=== PATIENT | female | born 1930 | race African-American/Black ===

== ENCOUNTER 2017-06-12 09:37 | Inpatient (IN) | payer MEDICARE ==
[2017-06-12 10:58] LABS: INR 3.31 (0.77-1.02)
[2017-06-12 11:28] LABS: EGFR Non-African American 16.4 (>60)
--- NOTE | 2017-06-12 11:57 | RAD ---
INDICATION: Short of breath COMPARISON: January 05, 2016 TECHNIQUE: An AP portable view obtained at 1136 hours is submitted. FINDINGS: Bones/Soft Tissues: There are no acute bony findings. There is a left-sided cardiac pacemaker, unchanged Cardiomediastinal: The cardiomediastinal silhouette is mildly prominent but unchanged. Lungs: There is mild right basilar platelike atelectasis. The lungs are otherwise clear. Pleura: There are no pleural effusions. Other: None IMPRESSION: MILD RIGHT BASILAR ATELECTASIS. CARDIAC PACEMAKER.
[2017-06-12] MEDS ORDERED: Aspirin 81 mg CHEW TAB* 81 MG TAB.CHEW PO ONE (11:58)
[2017-06-12 12:42] LABS: ABS Basophils 0.1 10^3/ul (0-0.2); ABS Eosinophils 0 10^3/ul (0-0.6); ABS Lymphocytes 0.9 10^3/ul (1.0-4.8); ABS Monocytes 0.8 10^3/ul (0-0.8); ABS Neutrophils 5.4 10^3/ul (1.5-7.7); ABS Nucleated RBC 0 10^3/ul; Eosinophil % 0.2 % (0-6); Hematocrit 32 % (35-47); Hemoglobin 10.5 g/dl (12.0-16.0); Lymphocyte % 12.6 % (25-47); Mean Corpuscular HGB Conc 33 g/dl (31-36); Mean Corpuscular Hemoglobin 30 pg (27-31); Mean Corpuscular Volume 92 fL (80-97); Mean Platelet Volume 8.9 um3 (7.4-10.4); Nucleated Red Blood Cells % 0.1; Platelet Count 186 10^3/ul (150-450); Red Blood Count 3.51 10^6/ul (4.0-5.4); Red Cell Distribution Width 15 % (10.5-15); White Blood Count 7.2 10^3/ul (3.5-10.8)
[2017-06-12] MEDS ORDERED: Nitroglycerin TAB 0.4 MG* 0.4 MG TAB SL PRN (13:11)
[2017-06-12] MEDS ORDERED: Magnesium Hydroxide LIQ* 30 ML UDC PO PRN (13:11)
[2017-06-12] MEDS: Clindamycin CAP* 150 MG PO SCH ×2 (14:11→22:11)
--- NOTE | 2017-06-12 18:12 | HP ---
HISTORY AND PHYSICAL: DATE OF ADMISSION: 06/12/17 ADMITTING PROVIDER: Erik Esquivel MD PRIMARY CARE PROVIDER: Dr. Rhodes at [facility]. CHIEF COMPLAINT: Shortness of breath, dyspnea on exertion, lower extremity swelling with skin blistering on the right. HISTORY OF PRESENT ILLNESS: Mana Glez is an 86-year-old female with past medical history of hypertrophic cardiomyopathy; dementia; chronic atrial fibrillation, on Xarelto; hypertension; status post pacemaker; osteoarthritis, who has been feeling unwell over the last several days. Three days prior to admission, she was evaluated by nurses at [facility] for increased lower extremity swelling with some blistering of the right distal lower extremity. There was concern for cellulitis and CHF, so in addition to her already Lasix 40 mg daily , she was put back on spironolactone 25 mg and given double-strength Bactrim. This is in the setting of the week prior complaining to her friend and healthcare proxy, Malsavi Siddharth, who is also a physician, that she overall felt "tired," did not feel good. He had noticed that she had been more dyspneic on exertion over the last few weeks. She had increasing swelling in her legs. She also two days prior to admission, reportedly slipped out of her bed on to the ground. Day of admission, she was again seen by nursing at [facility]. The patient was seen to still have progressive shortness of breath and was referred to [facility] Emergency Room. Here, she was found to have acute kidney injury with creatinine up to 2.74 compared to 1.85, three days prior. Her troponin was elevated to 0.63. She does have a history of chronic troponin elevations in the 0.2 to 0.3 range during previous admissions for chest pain and had a normal cardiac catheterization in March 2013. She is also noted to have opening blister on her right lower extremity with some yellow purulent drainage superficially, although without any malodor. She had some mild basilar atelectasis on the right side on the chest x-ray. Her BNP was elevated to 619. She was referred to hospitalist service for admission for concern for elevated troponin, shortness of breath, CHF exacerbation, and acute kidney injury. The patient is notably a poor historian with severe short-term memory issues/dementia, but healthy proxy, Malsavi, is helpful given that he has visited her twice over the last several days. She has been attesting to feeling cold at night, although on her initial complaint was that she felt really "hot." She had been evaluated by Dr. Ferreira back in February 2017, which found on pacemaker interrogation that she had been in basically chronic atrial fibrillation. She was on spironolactone for 2 weeks at that time. 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 She is status post pacemaker. MEDICATIONS: Include: 1. Amlodipine 2.5 mg daily. 2. Bactrim 1 tab p.o. b.i.d., initiated 3 days ago. 3. Spironolactone 25 mg p.o. daily, initiated 3 days ago. 4. Xarelto 15 mg p.o. daily. 5. Nitroglycerin 0.4 mg sublingual q.5 minutes p.r.n. chest pain. 6. Milk of magnesia liquid 30 mL p.o. daily p.r.n. 7. Lasix 60 mg p.o. daily (actually had been on 40 up until day of admission). 8. Cholecalciferol 2000 units p.o. daily. 9. Atenolol 50 mg p.o. daily. 10. Tylenol 500 mg p.o. four times a day. ALLERGIES: CEFAZOLIN and PENICILLIN. The PENICILLIN causes facial swelling. FAMILY HISTORY: Both of her sisters have , one from lung cancer, the other from stroke. The patient attests that all of her daughters of lung cancer. She cannot relate mother or father's cause of other than "poor habits." SOCIAL HISTORY: The patient is a retired supervised worker, who helped to work with Issa Hein . She is not . She is accompanied by her healthcare proxy, Ana Messina, and second proxy is Fabienne Hunt. She desires to be a full code. She is a never smoker, former rare alcohol drinker. No drug use. REVIEW OF SYSTEMS: A complete 14-point review of systems limited due to the patient's dementia, but she does deny any chest pressure, abdominal pain, or pain in the legs. She is fixated on what her next meal will be. PHYSICAL EXAMINATION GENERAL APPEARANCE: No acute distress. Sitting in the hospital bed. VITAL SIGNS: Initially, temperature 98.7, pulse rate 78, respiratory rate 17, oxygen saturation 93% to 99%. She has been placed on 2 L nasal cannula. Blood pressure is between 104 to 112 systolically over 70s. HEENT: Normocephalic, atraumatic. Pupils are equal, round, and reactive to light. No scleral icterus. Moist mucous membranes. NECK: Supple. No cervical lymphadenopathy. PULMONARY: Slight rales at the right base. CARDIOVASCULAR: Regular rate and rhythm. No murmurs, rubs, or gallops. ABDOMEN: Soft, nontender, nondistended. No rebound or guarding. No Odonnell's sign. EXTREMITIES: Warm, well perfused. On the left lower extremity, there are two vertical scars and some mild medial erythema that has been marked and has receded somewhat from markings, nontender. There is 1+ pitting edema, and 1 to 2+ in the left ankle. On the right, there is approximately an inch long x 3 inch wide superficial skin breakdown with fluffing of skin with some yellow green pus-like exudate on the middle portions. Picture from two days ago showed a bullous blister on the lower half of this wound with the top half had been already sloughed off. NEURO: Supervisor [employer] strength 5/5. Cranial nerves II through XII intact. Hip flexion 5 /5 bilaterally. The patient has pain with flexion of the left ankle, but not to palpation. Dorsiflexion and plantar flexion are intact on the right side. DIAGNOSTIC STUDIES/LAB DATA: White count 7.2, hemoglobin 10.5, hematocrit 32, platelets 185. INR 3.31, D-dimer 295. Sodium 141, potassium 5.2, chloride 107 , carbon dioxide 25, BUN 54, creatinine 2.74, GFR 21, glucose 92, lactic acid 1.9, magnesium 2.6. Total bili 1.2, AST 32, ALT 16, alk phos 106. Troponin 0.63. CRP 22.4. BNP 676. Albumin 3.7, lipase 27. TSH 2.82. Imaging: Chest x-ray with mild right basilar atelectasis. EKG demonstrated right bundle branch block, V paced, some T-wave inversions in V2 through V6, no ST elevations or depressions. ASSESSMENT AND PLAN: Mana Glez is an 86-year-old female with past medical history of hypertrophic obstructive cardiomyopathy, dementia, chronic atrial fibrillation, chronic kidney disease, presenting with acute renal injury in the setting of new Bactrim and spironolactone that was recently initiated for what was suspected to be cellulitis and acute congestive heart failure exacerbation respectively. Her last echocardiogram was in October 2009 with preserved ejection fraction. She does reportedly have a congestive heart failure exacerbation in June of 2015 and she is on chronic diuretics with Lasix 40 mg daily. I am going to repeat a transthoracic echocardiogram. On her presentation, BNP is elevated at 619 highest that has been. Bactrim can certainly be contributing to her elevated creatinine and will be held. I am going to get a wound care consult for this right ulcerated lower extremity wound along with a culture. I am going to start her on clindamycin for now given her PCN allergy. She does not meet criteria for sepsis. I am going to hold the spironolactone and Lasix for now. I am going to get urine sodium and urine urea to calculate FEUrea. I suspect the patient is having acute kidney injury from the Bactrim (which can cause AIN) versus possibly acute tubular necrosis from infection versus prerenal with increased diuretics versus congestion 2/2 CHF. She seems volume overloaded on exam. She does not require emergent hemodialysis. Her potassium is slightly elevated at 5.2. Consideration for consulting Dr. More of Nephrology in the morning if the creatinine continues to worsen. Her GFR is 26. I am going to continue her Xarelto for now, but be careful that she is close to being below safe dosing and if her kidney function continues to decline, may be safer on warfarin. I will continue to trend troponins x4 hours until peak and put her on telemetry, inpatient status. I will add on some blood cultures. We will continue her bowel regimen and beta marsha, 50 mg atenolol daily. She is status post aspirin 324 mg in the emergency room. I am going to continue her on the Xarelto , but not the aspirin. Follow up what the echocardiogram shows to see if there are any regional wall motion abnormalities. The patient is potentially a candidate for a stress test in the morning. Troponin elevation is most likely congestive heart failure, demand ischemia, and acute kidney injury. She is a full code. Medical surrogates are Ana Messina and Fabienne Hunt. She can eat a heart-healthy diet. [id number]/[facility] #: [id number] SELENA
--- NOTE | 2017-06-12 18:19 | ED ---
Daly Chan Gabriel, scribed for Josue Loredo MD on 06/12/17 at 1022 . Shortness of Breath - HPI Summary HPI Summary: This patient is a 86 year old F BIBA to [facility] accompanied by her health care proxy with a chief complaint of SOB. The patient rates the pain 0/10 in severity. Symptoms aggravated by movement. Patient reports fatigue, cough, increased edema, and chest congestion. Patient denies fever, CP, and ABD pain. Patient was diagnosed with cellulitis 3 days ago on LE and is on Bactrim. Hx of CHF and is on blood thinners. - History of Current Complaint Chief Complaint: EDShortnessOfBreath Time Seen by Provider: 06/12/17 10:11 Hx Obtained From: Patient Onset/Duration: Still Present Timing: Constant Current Severity: Mild Dyspnea At: Rest Aggrevating Factors: Movement Associated Signs & Symptoms: Negative - fever, Cough (Nonproductive), Edema - Allergy/Home Medications Allergies/Adverse Reactions: Allergies Allergy/AdvReac Type Severity Reaction Status Date / Time cefazolin [From Ancef] Allergy Unknown Verified 06/12/17 09:49 Reaction Details Penicillins Allergy Unknown Verified 06/12/17 09:49 Reaction Details fusemex Allergy Unknown Uncoded 06/12/17 09:49 Reaction Details Home Medications: Home Medications Acetaminophen [Acetaminophen Extra Strength] 500 mg PO QID 06/12/17 [History Confirmed 06/12/17] Atenolol TAB* [Tenormin TAB* 50 MG] 50 mg PO DAILY 06/12/17 [History Confirmed 06/12/17] Cholecalciferol TAB* [Vitamin D TAB*] 2,000 units PO DAILY 06/12/17 [History Confirmed 06/12/17] Furosemide TAB* [Lasix TAB*] 60 mg PO DAILY 06/12/17 [History Confirmed 06/12/17 ] Magnesium Hydroxide LIQ* [Milk of Magnesia LIQ*] 30 ml PO DAILY PRN 06/12/17 [ History Confirmed 06/12/17] Nitroglycerin TAB 0.4 MG* 0.4 mg SL Q5M PRN 06/12/17 [History Confirmed 06/12/17 ] Senna/Docusate (NF) [Sennokot-S] 1 tab PO DAILY 06/12/17 [History Confirmed 04/27] Spironolactone TAB* [Aldactone TAB*] 25 mg PO DAILY 06/12/17 [History Confirmed 06/12/17] Sulfamethox/Trimethoprim DS* [Bactrim DS 800/160 TAB*] 1 tab PO BID 06/12/17 [ History Confirmed 06/12/17] amLODIPine TAB* [Norvasc 5 mg TAB*] 2.5 mg PO DAILY 06/12/17 [History Confirmed 06/12/17] PMH/Surg Hx/FS Hx/Imm Hx Endocrine/Hematology History: Reports: Other Endocrine/Hematological Disorders - Vitamin D Deficiency Cardiovascular History: Reports: Hx Congestive Heart Failure, Hx Deep Vein Thrombosis, Hx Hypertension, Hx Myocardial Infarction, Hx Pacemaker/ICD, Other Cardiovascular Problems/Disorders - Atrial Fib; Hypertrophic Obstructive Cardiomyopathy GI History: Reports: Hx Gastroesophageal Reflux Disease Musculoskeletal History: Reports: Hx Arthritis, Hx Back Problems, Hx Osteoporosis, Other Musculoskeletal History - Intervertebral Disc Displacement Cervical w/o Myelopathy; Neuralgia Neuriti Neurological History: Reports: Other Neuro Impairments/Disorders - Carpal Tunnel Syndrome; Memory Loss; Alzheimer's Disease Psychiatric History: Reports: Hx Depression - Cancer History Cancer Type, Location and Year: sinus mass per pt - Surgical History Surgery Procedure, Year, and Place: HYSTERECTOMY, TONSILECTOMY, LLE SURGERY FOR DVT, sinus malignancy Infectious Disease History: No Infectious Disease History: Denies: Traveled Outside the [place] in Last 30 Days - Family History Known Family History: Positive: Unknown - The patient is a poor historian and very hard of hearing - Social History Lives: At [facility] Alcohol Use: Rare Substance Use Type: Reports: None Smoking Status (MU): Former Smoker Type: Cigarettes Have You Smoked in the Last Year: No Review of Systems Positive: Fatigue. Negative: Fever Negative: Chest Pain Positive: Shortness Of Breath, Cough, Other - chest congestion Negative: Abdominal Pain Positive: Edema All Other Systems Reviewed And Are Negative: Yes Physical Exam - Summary Physical Exam Summary: General: well-appearing, no pain distress Skin: there is erythema on the medial aspect of the left calf Head: normal Eyes: EOMI, LENNOX ENT: normal Neck: supple, nontender Respiratory: bilateral wheeze Cardiovascular: RRR Abdomen: soft, nontender Bowel: present Musculoskeletal: strength/ROM intact, pedal edema Neurological: normal, sensory/motor intact, A&O x3 Psychological: affect/mood appropriate Triage Information Reviewed: Yes Vital Signs On Initial Exam: Initial Vitals Pulse Pulse Ox 66 97 06/12/17 09:43 06/12/17 09:43 Vital Signs Reviewed: Yes Diagnostics - Vital Signs Vital Signs Temp Pulse Resp BP Pulse Ox 06/12/17 10:00 92 16 88 06/12/17 09:45 98.7 F 76 20 112/71 98 06/12/17 09:44 77 112/71 98 06/12/17 09:43 66 97 - Laboratory Lab Results: Lab Results 06/12/17 06/12/17 06/12/17 Range/Units 10:44 10:44 12:15 WBC 7.2 (3.5-10.8) 10^3/ul RBC 3.51 L (4.0-5.4) 10^6/ul Hgb 10.5 L (12.0-16.0) g/dl Hct 32 L (35-47) % MCV 92 (80-97) fL MCH 30 (27-31) pg MCHC 33 (31-36) g/dl RDW 15 (10.5-15) % Plt Count 186 (150-450) 10^3/ul MPV 8.9 (7.4-10.4) um3 Neut % (Auto) 75.4 (38-83) % Lymph % (Auto) 12.6 L (25-47) % Wilson % (Auto) 10.8 H (0-7) % Eos % (Auto) 0.2 (0-6) % Baso % (Auto) 1.0 (0-2) % Absolute Neuts (auto) 5.4 (1.5-7.7) 10^3/ul Absolute Lymphs (auto) 0.9 L (1.0-4.8) 10^3/ul Absolute Monos (auto) 0.8 (0-0.8) 10^3/ul Absolute Eos (auto) 0 (0-0.6) 10^3/ul Absolute Basos (auto) 0.1 (0-0.2) 10^3/ul Absolute Nucleated RBC 0 10^3/ul Nucleated RBC % 0.1 INR (Anticoag Therapy) 3.31 H (0.77-1.02) APTT 40.0 H (26.0-36.3) seconds D-Dimer, Quantitative 295 H (Less Than 230) ng/mL Sodium 141 (139-145) mmol/L Potassium 5.2 H (3.5-5.0) mmol/L Chloride 107 (101-111) mmol/L Carbon Dioxide 25 (22-32) mmol/L Anion Gap 9 (2-11) mmol/L BUN 54 H (6-24) mg/dL Creatinine 2.74 H (0.51-0.95) mg/dL Est GFR ( Amer) 21.1 (>60) Est GFR (Non-Af Amer) 16.4 (>60) BUN/Creatinine Ratio 19.7 (8-20) Glucose 92 (70-100) mg/dL Lactic Acid (0.5-2.0) mmol/L Calcium 10.1 (8.6-10.3) mg/dL Magnesium 2.6 (1.9-2.7) mg/dL Total Bilirubin 1.20 H (0.2-1.0) mg/dL AST 32 (13-39) U/L ALT 16 (7-52) U/L Alkaline Phosphatase 106 H (34-104) U/L Total Creatine Kinase 155 (10-223) U/L CK-MB (CK-2) 8.1 H (0.6-6.3) ng/mL Troponin I 0.63 H* (<0.04) ng/mL C-Reactive Protein 22.41 H (< 5.00) mg/L B-Natriuretic Peptide ( - 100) pg/mL Total Protein 7.4 (6.4-8.9) g/dL Albumin 3.7 (3.2-5.2) g/dL Globulin 3.7 (2-4) g/dL Albumin/Globulin Ratio 1.0 (1-3) Lipase 27 (11.0-82.0) U/L TSH 2.82 (0.34-5.60) mcIU/mL 06/12/17 06/12/17 Range/Units 12:15 12:15 WBC (3.5-10.8) 10^3/ul RBC (4.0-5.4) 10^6/ul Hgb (12.0-16.0) g/dl Hct (35-47) % MCV (80-97) fL MCH (27-31) pg MCHC (31-36) g/dl RDW (10.5-15) % Plt Count (150-450) 10^3/ul MPV (7.4-10.4) um3 Neut % (Auto) (38-83) % Lymph % (Auto) (25-47) % Wilson % (Auto) (0-7) % Eos % (Auto) (0-6) % Baso % (Auto) (0-2) % Absolute Neuts (auto) (1.5-7.7) 10^3/ul Absolute Lymphs (auto) (1.0-4.8) 10^3/ul Absolute Monos (auto) (0-0.8) 10^3/ul Absolute Eos (auto) (0-0.6) 10^3/ul Absolute Basos (auto) (0-0.2) 10^3/ul Absolute Nucleated RBC 10^3/ul Nucleated RBC % INR (Anticoag Therapy) (0.77-1.02) APTT (26.0-36.3) seconds D-Dimer, Quantitative (Less Than 230) ng/mL Sodium (139-145) mmol/L Potassium (3.5-5.0) mmol/L Chloride (101-111) mmol/L Carbon Dioxide (22-32) mmol/L Anion Gap (2-11) mmol/L BUN (6-24) mg/dL Creatinine (0.51-0.95) mg/dL Est GFR ( Amer) (>60) Est GFR (Non-Af Amer) (>60) BUN/Creatinine Ratio (8-20) Glucose (70-100) mg/dL Lactic Acid 1.9 (0.5-2.0) mmol/L Calcium (8.6-10.3) mg/dL Magnesium (1.9-2.7) mg/dL Total Bilirubin (0.2-1.0) mg/dL AST (13-39) U/L ALT (7-52) U/L Alkaline Phosphatase (34-104) U/L Total Creatine Kinase (10-223) U/L CK-MB (CK-2) (0.6-6.3) ng/mL Troponin I (<0.04) ng/mL C-Reactive Protein (< 5.00) mg/L B-Natriuretic Peptide 676 H ( - 100) pg/mL Total Protein (6.4-8.9) g/dL Albumin (3.2-5.2) g/dL Globulin (2-4) g/dL Albumin/Globulin Ratio (1-3) Lipase (11.0-82.0) U/L TSH (0.34-5.60) mcIU/mL Result Diagrams: 06/12/17 12:15 06/12/17 10:44 Lab Statement: Any lab studies that have been ordered have been reviewed, and results considered in the medical decision making process. - Radiology CXR Radiology Interpretation Completed By: Radiologist - MILD RIGHT BASILAR ATELECTASIS. CARDIAC PACEMAKER. ED physician has reviewed this radiology report. - EKG 0955 Cardiac Rate: NL EKG Rhythm: Atrial Fibrillation - at 75 BPM EKG Interpretation: intermittent ventricular complexes, flipped T waves in the lateral leads Course/Dx - Course Course Of Treatment: ADMIT HOSPITALIST. CRITICAL CARE TIME LESS THAN 30 MINUTES. - Diagnoses Provider Diagnoses: Elevated troponin, Kidney insufficiency, CHF (congestive heart failure) - Physician Notifications Discussed Care of Patient With: Erik Esquivel Time Discussed With Above Provider: 12:11 Instructed by Provider To: Admit As Inpatient Discharge - Sign-Out/Discharge Documenting (check all that apply): Discharge/Admit/Transfer - admitted to Dr. Esquivel - Discharge Plan Condition: Stable Disposition: ADMITTED TO [facility] - Billing Disposition and Condition Condition: STABLE Disposition: [facility] The documentation as recorded by the Daly aguilar Gabriel accurately reflects the service I personally performed and the decisions made by , Josue Loredo MD.
--- NOTE | 2017-06-12 19:03 | ECHO ---
Patient: MICHAEL MANRIQUEZ [facility] Rec#: [id number] : 1930 Date: 06/12/2017 Age: 86y Height: 160.02 cm / 63.0 in Weight: 90.72 kg / 199.9 lbs Sex: F BSA: 1.93 Room#: [facility] Admit Date#: 06/12/2017 Type: Inpatient Referring: Erik Esquivel Reading: Rusty Salguero DO Thread Laster: Nasrin Barron RDCS CC: Baljeet Rhodes MD Transthoracic Echocardiogram Indication: CHF, shortness of breath BP: 104/78 HR: 65 Rhythm: Paced Findings History: Hypertrophic cardiomyopathy, a-fib, HTN, pacer, DVT. Technical Comments: The study quality is fair. Completed at 1630. Left Ventricle: The left ventricular chamber size is decreased. Moderate to severe concentric left ventricular hypertrophy is observed. There is normal left ventricular systolic function. The estimated ejection fraction is 55-60%. There is abnormal ventricular septal wall motion consistent with right ventricular pacemaker. The assessment of diastolic function is non-diagnostic. Left Atrium: The left atrium is severely dilated. Right Ventricle: The right ventricle is mildly dilated. The right ventricular global systolic function is mildly reduced. A pacemaker wire is visualized in the right ventricle. Right Atrium: The right atrium is not well visualized., it appears dilated. A pacemaker wire is visualized in the right atrium. Aortic Valve: The aortic valve is trileaflet. The aortic valve leaflets are mildly thickened. There is trace to mild aortic regurgitation. There is no evidence of aortic stenosis. Mitral Valve: There is mitral annular calcification. The mitral valve leaflets are mildly thickened. There is mild mitral regurgitation. There is no evidence of mitral stenosis. Tricuspid Valve: The tricuspid valve leaflets are normal. There is moderate tricuspid regurgitation. There is evidence of mild pulmonary hypertension. There is no tricuspid stenosis. Pulmonic Valve: The pulmonic valve appears normal. There is a trace pulmonic regurgitation. There is no pulmonic stenosis. Pericardium: There is no significant pericardial effusion. Aorta: There is no dilatation of the ascending aorta. The aortic arch is not well visualized. The aortic root is normal in size. Pulmonary Artery: The main pulmonary artery is not well visualized. Venous: The inferior vena cava is dilated. There is less than 50% respiratory change in the inferior vena cava dimension. Conclusions The left ventricular chamber size is decreased. Moderate to severe concentric left ventricular hypertrophy is observed. There is normal left ventricular systolic function. The estimated ejection fraction is 55-60%. The left atrium is severely dilated. The right ventricle is mildly dilated. The right ventricular global systolic function is mildly reduced. A pacemaker wire is visualized in the right ventricle. The right atrium is not well visualized., it appears dilated. There is moderate tricuspid regurgitation. There is evidence of mild pulmonary hypertension. Compared to echo from 10/2009, no clinically significant changes noted. Measurements Name Value Normal Range RVIDd (AP) 2D 2.9 cm (0.9 - 2.6) RVDdMajor (2D) 5 cm (2.2 - 4.4) RAd ISD 4CH 7.2 cm (3.4 - 4.9) RA (A4C)W 4.4 cm (2.9 - 4.6) IVSd (2D) 1.7 cm (0.6 - 1) LVPWd (2D) 1.5 cm (0.6 - 1) LVIDd (2D) 3.1 cm (3.6 - 5.4) LVIDs (2D) 2.1 cm - LV FS (2D) 32 % (25 - 45) Aortic Annulus 1.7 cm (1.4 - 2.6) Ao root diameter (2D) 2.6 cm (2.1 - 3.5) Ascending Ao 2.5 cm (2.1 - 3.4) LA dimension (AP) 2D 4.2 cm (2.3 - 3.8) LAd ISD 4CH 7.6 cm (2.9 - 5.3) LA ISD 4CH W 4.7 cm (2.5 - 4.5) Name Value Normal Range LA ESV SP 4CH (A/L) 105 ml - LA ESV SP 2CH (A/L) 70 ml - LA ESV BP (A/L) 100 ml - LA ESV BP (A/L) index 52 ml/m2 - LA ESV SP 4CH (MOD) 100 ml - LA ESV SP 2CH (MOD) 64 ml - Name Value Normal Range MV E-wave Vmax 0.63 m/sec - MV deceleration time 284.8 msec - MV A-wave Vmax 0.37 m/sec - MV E:A ratio 1.7 ratio - LV septal e' Vmax 0.03 m/sec - LV lateral e' Vmax 0.06 m/sec - LV E:e' septal ratio 21 ratio - LV E:e' lateral ratio 10.5 ratio - Name Value Normal Range AV Vmax 1.1 m/sec - AV VTI 22.53 cm - AV peak gradient 4.75 mmHg - AV mean gradient 2.15 mmHg - LVOT Vmax 0.78 m/sec - LVOT VTI 18.1 cm - LVOT peak gradient 2.49 mmHg - LVOT mean gradient 1.15 mmHg - Name Value Normal Range TR Vmax 2.6 m/sec - TR peak gradient 27 mmHg - RAP 15 mmHg - RVSP 42 mmHg - IVC diameter 2.7 cm - Name Value Normal Range PV Vmax 0.68 m/sec - PV peak gradient 1.88 mmHg -
[2017-06-13] MEDS: Clindamycin CAP* 150 MG PO SCH ×3 (05:18→22:34)
[2017-06-13 07:01] LABS: ABS Basophils 0.1 10^3/ul (0-0.2); ABS Eosinophils 0.1 10^3/ul (0-0.6); ABS Lymphocytes 1.1 10^3/ul (1.0-4.8); ABS Monocytes 0.9 10^3/ul (0-0.8); ABS Neutrophils 4.7 10^3/ul (1.5-7.7); ABS Nucleated RBC 0 10^3/ul; Eosinophil % 0.9 % (0-6); Hematocrit 32 % (35-47); Hemoglobin 10.6 g/dl (12.0-16.0); Lymphocyte % 16.4 % (25-47); Mean Corpuscular HGB Conc 33 g/dl (31-36); Mean Corpuscular Hemoglobin 30 pg (27-31); Mean Corpuscular Volume 92 fL (80-97); Mean Platelet Volume 8.7 um3 (7.4-10.4); Nucleated Red Blood Cells % 0.2; Platelet Count 177 10^3/ul (150-450); Red Blood Count 3.51 10^6/ul (4.0-5.4); Red Cell Distribution Width 15 % (10.5-15); White Blood Count 6.8 10^3/ul (3.5-10.8)
[2017-06-13 08:55] LABS: EGFR Non-African American 15.1 (>60)
[2017-06-13] MEDS ORDERED: Senna/Docusate (NF) TAB PO SCH (09:00)
[2017-06-13] MEDS: Atenolol TAB* 50 MG PO SCH (09:23)
[2017-06-13] MEDS: Cholecalciferol TAB* 1000 UNITS PO SCH (09:23)
[2017-06-13] MEDS: Collagenase 250 MG/GM OINT* 30 GM TOPICAL SCH (09:24)
[2017-06-13] MEDS: Senna TAB PO SCH (09:24)
[2017-06-13] MEDS: Docusate CAP* 100 MG PO SCH (09:24)
[2017-06-13] MEDS ORDERED: Sodium Polystyrene ORAL.SOL* 15 GM/60 ML BTL PO ONE (09:54)
[2017-06-13] MEDS ORDERED: Furosemide IV* 10 MG/ML VIAL (40 MG) IV ONE (10:36)
[2017-06-13] MEDS: Lactobacillus Acidophilus* 1 TAB PO SCH ×2 (12:19→22:34)
--- NOTE | 2017-06-13 13:33 | RAD ---
INDICATION: Leg wounds with nonpalpable pulses COMPARISON: CTA of the abdomen and pelvis dated April 29, 2013 that demonstrated adequate in-line flow from the aorta to the bilateral proximal superficial femoral arteries TECHNIQUE: Ankle-brachial indices and Doppler tracings were obtained of the lower extremities bilaterally. Volume pulse recordings were acquired at the bilateral ankles. REPORT: Ankle-brachial indices: Right: Value (SBP) Index Brachial: 120 Posterior tibialis: 138 1.15 Dorsalis pedis: 178 1.48 Digit: 55 0.46 Left: Value (SBP) Index Brachial: 109 Posterior tibialis: No flow identified Dorsalis pedis: Non-compressible Digit: 90 0.75 Doppler waveforms (acquired at rest): In the interrogated lower extremity arteries, Doppler waveforms are biphasic with reduced amplitudes measured at the right ankle, triphasic at the left dorsalis pedis artery and no flow is identified the left posterior tibial artery. Volume pulse recordings (acquired at rest): Volume pulse recordings, measured at the bilateral ankles, are symmetric. IMPRESSION: There is no flow identified in the posterior tibial artery and the left dorsalis pedis artery is noncompressible indicating advanced calcified atherosclerosis. Arterial waveforms are identified in the dorsalis pedis artery and a normal CANELO is recorded at the left digit. In the setting of critical limb ischemia recommend further characterization with arterial left lower extremity duplex sonography (please include the right common femoral artery for intervention planning) and/or catheter arteriography.
--- NOTE | 2017-06-13 15:09 | PN ---
Subjective Date of Service: 06/13/17 Interval History: Pt is pleasantly confused, unable to tell me how long she's had the ulcer on r leg. Has no complaints currently Objective Active Medications: Atenolol (Tenormin Tab*) 50 mg PO DAILY [facility] Last Admin: 06/13/17 09:23 Dose: 50 mg Cholecalciferol (Vitamin D Tab*) 2,000 units PO DAILY [facility] Last Admin: 06/13/17 09:23 Dose: 2,000 units Clindamycin HCl (Cleocin Cap*) 150 mg PO Q8HR [facility] Last Admin: 06/13/17 13:37 Dose: 150 mg Collagenase (Santyl 250 Mg/Gm Oint*) 1 applic TOPICAL DAILY [facility] Last Admin: 06/13/17 09:24 Dose: 1 applic Docusate Sodium (Colace Cap*) 100 mg PO DAILY [facility] Last Admin: 06/13/17 09:24 Dose: 100 mg Lactobacillus Rhamnosus (Lactobacillus Acidophilus*) 1 tab PO BID [facility] Last Admin: 06/13/17 12:19 Dose: 1 tab Magnesium Hydroxide (Milk Of Magnmateus Liq*) 30 ml PO DAILY PRN PRN Reason: CONSTIPATION Nitroglycerin (Nitroglycerin Tab 0.4 Mg*) 0.4 mg SL Q5M PRN PRN Reason: ANGINA Senna (Senokot Tab*) 1 tab PO DAILY [facility] Last Admin: 06/13/17 09:24 Dose: 1 tab Vital Signs - 8 hr 06/13/17 11:37 Temperature 98.0 F Pulse Rate 83 Respiratory 16 Rate Blood Pressure 100/56 (mmHg) O2 Sat by Pulse 100 Oximetry Oxygen Devices in Use Now: None Appearance: 86 yo f in nAD, oriented to self only Eyes: No Scleral Icterus, PERRLA Ears/Nose/Mouth/Throat: NL Teeth, Lips, Gums, Mucous Membranes Moist Neck: NL Appearance and Movements; NL JVP, Trachea Midline Respiratory: Symmetrical Chest Expansion and Respiratory Effort, - - crackles at b/l bases Cardiovascular: NL Sounds; No Murmurs; No JVD Abdominal: NL Sounds; No Tenderness; No Distention Lymphatic: No Cervical Adenopathy Extremities: No Clubbing, Cyanosis, - - trace pedal edema b/l Skin: No Nodules or Sclerosis, - - R anterior olea ulcer stage 2 at 12x5 cm Neurological: NL Muscle Strength and Tone Result Diagrams: 06/13/17 06:28 06/13/17 06:28 Additional Lab and Data: Lab Results 06/12/17 06/12/17 06/12/17 Range/Units 10:44 10:44 12:15 WBC 7.2 (3.5-10.8) 10^3/ul RBC 3.51 L (4.0-5.4) 10^6/ul Hgb 10.5 L (12.0-16.0) g/dl Hct 32 L (35-47) % MCV 92 (80-97) fL MCH 30 (27-31) pg MCHC 33 (31-36) g/dl RDW 15 (10.5-15) % Plt Count 186 (150-450) 10^3/ul MPV 8.9 (7.4-10.4) um3 Neut % (Auto) 75.4 (38-83) % Lymph % (Auto) 12.6 L (25-47) % [place] % (Auto) 10.8 H (0-7) % Eos % (Auto) 0.2 (0-6) % Baso % (Auto) 1.0 (0-2) % Absolute Neuts (auto) 5.4 (1.5-7.7) 10^3/ul Absolute Lymphs (auto) 0.9 L (1.0-4.8) 10^3/ul Absolute Monos (auto) 0.8 (0-0.8) 10^3/ul Absolute Eos (auto) 0 (0-0.6) 10^3/ul Absolute Basos (auto) 0.1 (0-0.2) 10^3/ul Absolute Nucleated RBC 0 10^3/ul Nucleated RBC % 0.1 INR (Anticoag Therapy) 3.31 H (0.77-1.02) APTT 40.0 H (26.0-36.3) seconds D-Dimer, Quantitative 295 H (Less Than 230) ng/mL Sodium 141 (139-145) mmol/L Potassium 5.2 H (3.5-5.0) mmol/L Chloride 107 (101-111) mmol/L Carbon Dioxide 25 (22-32) mmol/L Anion Gap 9 (2-11) mmol/L BUN 54 H (6-24) mg/dL Creatinine 2.74 H (0.51-0.95) mg/dL Est GFR ( Amer) 21.1 (>60) Est GFR (Non-Af Amer) 16.4 (>60) BUN/Creatinine Ratio 19.7 (8-20) Glucose 92 (70-100) mg/dL Lactic Acid (0.5-2.0) mmol/L Calcium 10.1 (8.6-10.3) mg/dL Magnesium 2.6 (1.9-2.7) mg/dL Total Bilirubin 1.20 H (0.2-1.0) mg/dL AST 32 (13-39) U/L ALT 16 (7-52) U/L Alkaline Phosphatase 106 H (34-104) U/L Total Creatine Kinase 155 (10-223) U/L CK-MB (CK-2) 8.1 H (0.6-6.3) ng/mL Troponin I 0.63 H* (<0.04) ng/mL C-Reactive Protein 22.41 H (< 5.00) mg/L B-Natriuretic Peptide ( - 100) pg/mL Total Protein 7.4 (6.4-8.9) g/dL Albumin 3.7 (3.2-5.2) g/dL Globulin 3.7 (2-4) g/dL Albumin/Globulin Ratio 1.0 (1-3) Lipase 27 (11.0-82.0) U/L TSH 2.82 (0.34-5.60) mcIU/mL 06/12/17 06/12/17 Range/Units 12:15 12:15 WBC (3.5-10.8) 10^3/ul RBC (4.0-5.4) 10^6/ul Hgb (12.0-16.0) g/dl Hct (35-47) % MCV (80-97) fL MCH (27-31) pg MCHC (31-36) g/dl RDW (10.5-15) % Plt Count (150-450) 10^3/ul MPV (7.4-10.4) um3 Neut % (Auto) (38-83) % Lymph % (Auto) (25-47) % [place] % (Auto) (0-7) % Eos % (Auto) (0-6) % Baso % (Auto) (0-2) % Absolute Neuts (auto) (1.5-7.7) 10^3/ul Absolute Lymphs (auto) (1.0-4.8) 10^3/ul Absolute Monos (auto) (0-0.8) 10^3/ul Absolute Eos (auto) (0-0.6) 10^3/ul Absolute Basos (auto) (0-0.2) 10^3/ul Absolute Nucleated RBC 10^3/ul Nucleated RBC % INR (Anticoag Therapy) (0.77-1.02) APTT (26.0-36.3) seconds D-Dimer, Quantitative (Less Than 230) ng/mL Sodium (139-145) mmol/L Potassium (3.5-5.0) mmol/L Chloride (101-111) mmol/L Carbon Dioxide (22-32) mmol/L Anion Gap (2-11) mmol/L BUN (6-24) mg/dL Creatinine (0.51-0.95) mg/dL Est GFR ( Amer) (>60) Est GFR (Non-Af Amer) (>60) BUN/Creatinine Ratio (8-20) Glucose (70-100) mg/dL Lactic Acid 1.9 (0.5-2.0) mmol/L Calcium (8.6-10.3) mg/dL Magnesium (1.9-2.7) mg/dL Total Bilirubin (0.2-1.0) mg/dL AST (13-39) U/L ALT (7-52) U/L Alkaline Phosphatase (34-104) U/L Total Creatine Kinase (10-223) U/L CK-MB (CK-2) (0.6-6.3) ng/mL Troponin I (<0.04) ng/mL C-Reactive Protein (< 5.00) mg/L B-Natriuretic Peptide 676 H ( - 100) pg/mL Total Protein (6.4-8.9) g/dL Albumin (3.2-5.2) g/dL Globulin (2-4) g/dL Albumin/Globulin Ratio (1-3) Lipase (11.0-82.0) U/L TSH (0.34-5.60) mcIU/mL Assess/Plan/Problems-Billing Assessment: 86 yo f with h/o dementia, A. fib (on anticoagulation, CKD stage 3 ) presented with R leg cellulitis and COMPA - Patient Problems (1) Afib Comment: chronic, xarelto held due to COMPA May be a candidate for eliquis, will consider to start tomorrow (studies excluded pt's with creat>2.5) (2) Cellulitis, leg Comment: CANELO shows significant disease on left, but not on R leg-where the ulcer is. suspect the ulcer is due to venous insufficiency cont clindamycin, improved (3) COMPA (acute kidney injury) Comment: on CKD stage 3 with baseline creat 1.3-suspect due to a comination of Bactrim and Aldactone will tx with one dose of IV Lasix and monitor (4) Troponin I above reference range Comment: h/o chronic elevation of 0.3. At 0.6 this hospital stay, no c/o CP suspect demand ischemia with COMPA contributing. Echo unchanged c/w 2009, severe LVH noted. (5) DVT prophylaxis Comment: xarelto held, will likely start eliquis in aM. Status and Disposition: OBV changed to inpatient, will need another 24-48 hrs of hospital stay. Will got to [facility] at d/s
[2017-06-13] MEDS: Nystatin CREAM* 15 GM TUBE TOPICAL SCH (22:40)
[2017-06-14] MEDS: Clindamycin CAP* 150 MG PO SCH ×3 (05:45→20:21)
[2017-06-14 06:37] LABS: ABS Basophils 0.1 10^3/ul (0-0.2); ABS Eosinophils 0 10^3/ul (0-0.6); ABS Lymphocytes 0.9 10^3/ul (1.0-4.8); ABS Monocytes 0.9 10^3/ul (0-0.8); ABS Neutrophils 6.2 10^3/ul (1.5-7.7); ABS Nucleated RBC 0 10^3/ul; Eosinophil % 0.5 % (0-6); Hematocrit 35 % (35-47); Hemoglobin 11.2 g/dl (12.0-16.0); Lymphocyte % 10.7 % (25-47); Mean Corpuscular HGB Conc 32 g/dl (31-36); Mean Corpuscular Hemoglobin 30 pg (27-31); Mean Corpuscular Volume 92 fL (80-97); Mean Platelet Volume 8.5 um3 (7.4-10.4); Nucleated Red Blood Cells % 0.2; Platelet Count 177 10^3/ul (150-450); Red Blood Count 3.76 10^6/ul (4.0-5.4); Red Cell Distribution Width 15 % (10.5-15)
[2017-06-14 06:50] LABS: EGFR Non-African American 18.1 (>60)
[2017-06-14] MEDS ORDERED: Sodium Polystyrene ORAL.SOL* 15 GM/60 ML BTL PO ONE (07:59)
[2017-06-14] MEDS: Atenolol TAB* 50 MG PO SCH (08:29)
[2017-06-14] MEDS: Senna TAB PO SCH (08:44)
[2017-06-14] MEDS: Docusate CAP* 100 MG PO SCH (08:44)
[2017-06-14] MEDS: Cholecalciferol TAB* 1000 UNITS PO SCH (08:44)
[2017-06-14] MEDS: Lactobacillus Acidophilus* 1 TAB PO SCH ×2 (08:44→20:21)
[2017-06-14] MEDS: Collagenase 250 MG/GM OINT* 30 GM TOPICAL SCH (08:48)
[2017-06-14] MEDS: Nystatin CREAM* 15 GM TUBE TOPICAL SCH ×3 (08:55→20:21)
--- NOTE | 2017-06-14 18:26 | PN ---
Subjective Date of Service: 06/14/17 Interval History: HOSPITALIST PROGRESS NOTE Patient seen and examined at bedside. Confused, offers no complaints, requesting some tea. Family History: Unchanged from Admission Social History: Unchanged from Admission Past Medical History: Unchanged from Admission Objective Active Medications: Atenolol (Tenormin Tab*) 50 mg PO DAILY [facility] Last Admin: 06/14/17 08:29 Dose: Not Given Cholecalciferol (Vitamin D Tab*) 2,000 units PO DAILY [facility] Last Admin: 06/14/17 08:44 Dose: 2,000 units Clindamycin HCl (Cleocin Cap*) 150 mg PO Q8HR [facility] Last Admin: 06/14/17 13:13 Dose: 150 mg Collagenase (Santyl 250 Mg/Gm Oint*) 1 applic TOPICAL DAILY [facility] Last Admin: 06/14/17 08:48 Dose: 1 applic Docusate Sodium (Colace Cap*) 100 mg PO DAILY [facility] Last Admin: 06/14/17 08:44 Dose: 100 mg Lactobacillus Rhamnosus (Lactobacillus Acidophilus*) 1 tab PO BID [facility] Last Admin: 06/14/17 08:44 Dose: 1 tab Magnesium Hydroxide (Milk Of Magnesia Liq*) 30 ml PO DAILY PRN PRN Reason: CONSTIPATION Nitroglycerin (Nitroglycerin Tab 0.4 Mg*) 0.4 mg SL Q5M PRN PRN Reason: ANGINA Nystatin (Nystatin Cream*) 1 applic TOPICAL TID [facility] Last Admin: 06/14/17 13:19 Dose: Not Given Senna (Senokot Tab*) 1 tab PO DAILY [facility] Last Admin: 06/14/17 08:44 Dose: 1 tab Vital Signs - 8 hr 06/14/17 06/14/17 11:33 15:04 Temperature 97.5 F 96.9 F Pulse Rate 71 54 Respiratory 16 18 Rate Blood Pressure 112/64 116/50 (mmHg) O2 Sat by Pulse 97 99 Oximetry Oxygen Devices in Use Now: None Appearance: Elderly obese lady lying in bed in NAD. Eyes: No Scleral Icterus Ears/Nose/Mouth/Throat: Mucous Membranes Moist Neck: Trachea Midline Respiratory: Symmetrical Chest Expansion and Respiratory Effort, Clear to Auscultation Cardiovascular: RRR - Normal S1 and S2 Neurological: - - AAOx1 (self only) Result Diagrams: 06/14/17 06:13 06/14/17 06:13 Assess/Plan/Problems-Billing Assessment: Mrs. Glez is an 86 yo f with h/o dementia, HOCM, Afib on anticoagulation, CKD stage 3, LLE thrombectomy, s/p pacer, who presented with R leg cellulitis and COMPA. - Patient Problems (1) Afib Comment: - Rate controlled with Atenolol. - Xarelto held due to COMPA. Creatinine is still >2.5. (2) Cellulitis, leg Comment: - CANELO shows significant disease on left, but not on R leg where the ulcer is. - Suspect the ulcer is due to venous insufficiency. - Continue clindamycin. (3) COMPA (acute kidney injury) Comment: - CKD stage 3 with baseline creatinine around 1.3 - suspect worsening renal function due to a combination of Bactrim and Aldactone. - Creatinine trending down. (4) Hyperkalemia Comment: - Secondary to COMPA, Bactrim, and Aldactone. - Kayexalate. - Change to renal diet. (5) DVT prophylaxis Comment: - SQ heparin. Status and Disposition: OBV changed to inpatient, will need another 24-48 hrs of hospital stay. Will got to [facility] at d/s
[2017-06-14] MEDS: Heparin VIAL(*) 5000 UNITS/ML VIAL (FIVE THOUSAND) SUBCUT SCH (20:21)
[2017-06-15] MEDS: Clindamycin CAP* 150 MG PO SCH ×3 (05:54→21:14)
[2017-06-15] MEDS: Heparin VIAL(*) 5000 UNITS/ML VIAL (FIVE THOUSAND) SUBCUT SCH ×2 (05:54→14:52)
[2017-06-15] MEDS: Atenolol TAB* 50 MG PO SCH (10:28)
[2017-06-15] MEDS: Cholecalciferol TAB* 1000 UNITS PO SCH (10:29)
[2017-06-15] MEDS: Senna TAB PO SCH (10:29)
[2017-06-15] MEDS: Docusate CAP* 100 MG PO SCH (10:29)
[2017-06-15] MEDS: Lactobacillus Acidophilus* 1 TAB PO SCH ×2 (10:29→21:14)
[2017-06-15] MEDS: Collagenase 250 MG/GM OINT* 30 GM TOPICAL SCH (10:31)
[2017-06-15] MEDS: Nystatin CREAM* 15 GM TUBE TOPICAL SCH ×3 (10:31→21:14)
[2017-06-15 14:45] LABS: EGFR Non-African American 22.3 (>60)
[2017-06-15] MEDS: Apixaban* 2.5 MG TAB PO SCH ×2 (14:52→21:14)
--- NOTE | 2017-06-15 15:58 | PN ---
Subjective Date of Service: 06/15/17 Interval History: HOSPITALIST PROGRESS NOTE Patient seen and examined at bedside. Care reviewed and d/w Paulie Clayton RN. She offers no new complaints today. Denies dyspnea or chest pain. Family History: Unchanged from Admission Social History: Unchanged from Admission Past Medical History: Unchanged from Admission Objective Active Medications: Apixaban (Eliquis) 2.5 mg PO BID [facility] Last Admin: 06/15/17 14:52 Dose: 2.5 mg Atenolol (Tenormin Tab*) 50 mg PO DAILY [facility] Last Admin: 06/15/17 10:28 Dose: Not Given Cholecalciferol (Vitamin D Tab*) 2,000 units PO DAILY [facility] Last Admin: 06/15/17 10:29 Dose: 2,000 units Clindamycin HCl (Cleocin Cap*) 150 mg PO Q8HR [facility] Last Admin: 06/15/17 14:52 Dose: 150 mg Collagenase (Santyl 250 Mg/Gm Oint*) 1 applic TOPICAL DAILY [facility] Last Admin: 06/15/17 10:31 Dose: 1 applic Docusate Sodium (Colace Cap*) 100 mg PO DAILY [facility] Last Admin: 06/15/17 10:29 Dose: 100 mg Lactobacillus Rhamnosus (Lactobacillus Acidophilus*) 1 tab PO BID [facility] Last Admin: 06/15/17 10:29 Dose: 1 tab Magnesium Hydroxide (Milk Of Magnesia Liq*) 30 ml PO DAILY PRN PRN Reason: CONSTIPATION Nitroglycerin (Nitroglycerin Tab 0.4 Mg*) 0.4 mg SL Q5M PRN PRN Reason: ANGINA Nystatin (Nystatin Cream*) 1 applic TOPICAL TID [facility] Last Admin: 06/15/17 14:52 Dose: 1 applic Senna (Senokot Tab*) 1 tab PO DAILY [facility] Last Admin: 06/15/17 10:29 Dose: 1 tab Vital Signs - 8 hr 06/15/17 06/15/17 08:00 10:27 Temperature 97.5 F Pulse Rate 67 Respiratory 18 Rate Blood Pressure 106/56 (mmHg) O2 Sat by Pulse 100 Oximetry Oxygen Devices in Use Now: None Appearance: Elderly lady lying in bed in NAD. Eyes: No Scleral Icterus Ears/Nose/Mouth/Throat: Mucous Membranes Moist Neck: Trachea Midline Respiratory: Symmetrical Chest Expansion and Respiratory Effort, Clear to Auscultation Cardiovascular: - - Normal S1 and S2, irregularly irregular Extremities: - - Bilateral LE pitting edema Neurological: - - AAOx1 (self), CORCORAN Result Diagrams: 06/14/17 06:13 06/15/17 14:13 Assess/Plan/Problems-Billing Assessment: Mrs. Glez is an 86 yo f with h/o dementia, HOCM, Afib on anticoagulation, CKD stage 3, LLE thrombectomy, s/p pacer, who presented with R leg cellulitis and COMPA. - Patient Problems (1) Afib Comment: - Rate controlled with Atenolol. - Xarelto held due to COMPA, but creatinine now is 2.1 - start low dose Eliquis. (2) Cellulitis, leg Comment: - CANELO shows significant disease on left, but not on R leg where the ulcer is. - Suspect the ulcer is due to venous insufficiency. - Continue clindamycin. (3) COMPA (acute kidney injury) Comment: - CKD stage 3 with baseline creatinine around 1.3 - suspect worsening renal function due to a combination of Bactrim and Aldactone. - Creatinine trending down. (4) Hyperkalemia Comment: - Secondary to COMPA, Bactrim, and Aldactone. - Received Kayexalate x 2. (5) DVT prophylaxis Comment: - SQ heparin. Status and Disposition: OBV changed to inpatient, will need another 24-48 hrs of hospital stay. Will got to [facility] at d/s
[2017-06-16] MEDS: Clindamycin CAP* 150 MG PO SCH ×3 (05:40→20:58)
[2017-06-16 07:14] LABS: EGFR Non-African American 25.6 (>60)
[2017-06-16] MEDS: Atenolol TAB* 50 MG PO SCH (09:10)
[2017-06-16] MEDS: Cholecalciferol TAB* 1000 UNITS PO SCH (09:11)
[2017-06-16] MEDS: Apixaban* 2.5 MG TAB PO SCH ×2 (09:11→20:58)
[2017-06-16] MEDS: Lactobacillus Acidophilus* 1 TAB PO SCH ×2 (09:12→20:58)
[2017-06-16] MEDS: Nystatin CREAM* 15 GM TUBE TOPICAL SCH ×4 (09:12→21:02)
[2017-06-16] MEDS: Senna TAB PO SCH (09:12)
[2017-06-16] MEDS: Docusate CAP* 100 MG PO SCH (09:12)
--- NOTE | 2017-06-16 16:41 | PN ---
Subjective Date of Service: 06/16/17 Interval History: HOSPITALIST PROGRESS NOTE Patient seen and examined at bedside. Pleasantly confused, offers no complaints today. Family History: Unchanged from Admission Social History: Unchanged from Admission Past Medical History: Unchanged from Admission Objective Active Medications: Apixaban (Eliquis) 2.5 mg PO BID [facility] Last Admin: 06/16/17 09:11 Dose: 2.5 mg Atenolol (Tenormin Tab*) 50 mg PO DAILY [facility] Last Admin: 06/16/17 09:10 Dose: Not Given Cholecalciferol (Vitamin D Tab*) 2,000 units PO DAILY [facility] Last Admin: 06/16/17 09:11 Dose: 2,000 units Clindamycin HCl (Cleocin Cap*) 150 mg PO Q8HR [facility] Last Admin: 06/16/17 14:03 Dose: 150 mg Collagenase (Santyl 250 Mg/Gm Oint*) 1 applic TOPICAL DAILY [facility] Last Admin: 06/15/17 10:31 Dose: 1 applic Docusate Sodium (Colace Cap*) 100 mg PO DAILY [facility] Last Admin: 06/16/17 09:12 Dose: 100 mg Lactobacillus Rhamnosus (Lactobacillus Acidophilus*) 1 tab PO BID [facility] Last Admin: 06/16/17 09:12 Dose: 1 tab Magnesium Hydroxide (Milk Of Magnesia Liq*) 30 ml PO DAILY PRN PRN Reason: CONSTIPATION Nitroglycerin (Nitroglycerin Tab 0.4 Mg*) 0.4 mg SL Q5M PRN PRN Reason: ANGINA Nystatin (Nystatin Cream*) 1 applic TOPICAL TID [facility] Last Admin: 06/16/17 14:29 Dose: Not Given Senna (Senokot Tab*) 1 tab PO DAILY [facility] Last Admin: 06/16/17 09:12 Dose: 1 tab Vital Signs - 8 hr 06/16/17 06/16/17 12:09 15:19 Temperature 98.4 F 99.0 F Pulse Rate 84 87 Respiratory 20 20 Rate Blood Pressure 107/95 117/72 (mmHg) O2 Sat by Pulse 100 99 Oximetry Oxygen Devices in Use Now: None Appearance: Pleasant elderly lady sitting up in recliner in NAD. Eyes: No Scleral Icterus Ears/Nose/Mouth/Throat: Mucous Membranes Moist Neck: Trachea Midline Respiratory: Symmetrical Chest Expansion and Respiratory Effort, Clear to Auscultation Cardiovascular: RRR - Normal S1 and S2 Abdominal: NL Sounds; No Tenderness; No Distention Extremities: - - Bilateral LE moderate to severe edema Neurological: - - AAox2 (self and place) Result Diagrams: 06/14/17 06:13 06/16/17 06:40 Assess/Plan/Problems-Billing Assessment: Mrs. Glez is an 86 yo f with h/o dementia, HOCM, Afib on anticoagulation, CKD stage 3, LLE thrombectomy, s/p pacer, who presented with R leg cellulitis and COMPA. - Patient Problems (1) Afib Comment: - Rate controlled with Atenolol. - Xarelto held due to COMPA, but creatinine now is 1.8 - continue low dose Eliquis. (2) Cellulitis, leg Comment: - CANELO shows significant disease on left, but not on R leg where the ulcer is. - Suspect the ulcer is due to venous insufficiency. - Continue clindamycin. (3) COMPA (acute kidney injury) Comment: - CKD stage 3 with baseline creatinine around 1.3 - suspect worsening renal function due to a combination of Bactrim and Aldactone. - Creatinine trending down. (4) Hyperkalemia Comment: - Resolved. - Secondary to COMPA, Bactrim, and Aldactone. - Received Kayexalate x 2. (5) DVT prophylaxis Comment: - SQ heparin. Status and Disposition: OBV changed to inpatient, will need another 24-48 hrs of hospital stay. Will got to [facility] at discharge.
[2017-06-16] MEDS: Collagenase 250 MG/GM OINT* 30 GM TOPICAL SCH (16:56)
[2017-06-17 06:02] LABS: EGFR Non-African American 30.1 (>60)
[2017-06-17] MEDS: Clindamycin CAP* 150 MG PO SCH ×3 (06:13→23:31)
[2017-06-17] MEDS: Cholecalciferol TAB* 1000 UNITS PO SCH (10:51)
[2017-06-17] MEDS: Senna TAB PO SCH (10:51)
[2017-06-17] MEDS: Docusate CAP* 100 MG PO SCH (10:52)
[2017-06-17] MEDS: Lactobacillus Acidophilus* 1 TAB PO SCH ×2 (10:52→20:43)
[2017-06-17] MEDS: Apixaban* 2.5 MG TAB PO SCH ×2 (10:52→20:43)
[2017-06-17] MEDS: Atenolol TAB* 50 MG PO SCH (10:56)
[2017-06-17] MEDS: Nystatin CREAM* 15 GM TUBE TOPICAL SCH ×3 (10:57→23:34)
[2017-06-17] MEDS: Collagenase 250 MG/GM OINT* 30 GM TOPICAL SCH (12:00)
[2017-06-17] MEDS ORDERED: Furosemide IV* 10 MG/ML 2 ML VIAL (20 MG) IV SLOW PU ONE (13:11)
--- NOTE | 2017-06-17 13:19 | PN ---
Subjective Date of Service: 06/17/17 Interval History: HOSPITALIST PROGRESS NOTE Patient seen and examined at bedside. Pleasantly confused, offers no complaints. Seems to be a little more dyspneic today, although she denies it. Family History: Unchanged from Admission Social History: Unchanged from Admission Past Medical History: Unchanged from Admission Objective Active Medications: Apixaban (Eliquis) 2.5 mg PO BID [facility] Last Admin: 06/17/17 10:52 Dose: 2.5 mg Atenolol (Tenormin Tab*) 50 mg PO DAILY [facility] Cholecalciferol (Vitamin D Tab*) 2,000 units PO DAILY [facility] Last Admin: 06/17/17 10:51 Dose: 2,000 units Clindamycin HCl (Cleocin Cap*) 150 mg PO Q8HR [facility] Last Admin: 06/17/17 06:13 Dose: 150 mg Collagenase (Santyl 250 Mg/Gm Oint*) 1 applic TOPICAL DAILY [facility] Last Admin: 06/17/17 12:00 Dose: 1 applic Docusate Sodium (Colace Cap*) 100 mg PO DAILY [facility] Last Admin: 06/17/17 10:52 Dose: 100 mg Furosemide (Lasix Iv*) 20 mg IV SLOW PU ONCE ONE Stop: 06/17/17 13:12 Lactobacillus Rhamnosus (Lactobacillus Acidophilus*) 1 tab PO BID [facility] Last Admin: 06/17/17 10:52 Dose: 1 tab Magnesium Hydroxide (Milk Of Magnesia Liq*) 30 ml PO DAILY PRN PRN Reason: CONSTIPATION Nitroglycerin (Nitroglycerin Tab 0.4 Mg*) 0.4 mg SL Q5M PRN PRN Reason: ANGINA Nystatin (Nystatin Cream*) 1 applic TOPICAL TID [facility] Last Admin: 06/17/17 10:57 Dose: 1 applic Senna (Senokot Tab*) 1 tab PO DAILY [facility] Last Admin: 06/17/17 10:51 Dose: 1 tab Vital Signs - 8 hr 06/17/17 07:43 Temperature 97.4 F Pulse Rate 72 Respiratory 16 Rate Blood Pressure 116/44 (mmHg) O2 Sat by Pulse 100 Oximetry Oxygen Devices in Use Now: None Appearance: Elderly lady lying in bed in NAD. Eyes: No Scleral Icterus Ears/Nose/Mouth/Throat: Mucous Membranes Moist Neck: Trachea Midline Respiratory: Symmetrical Chest Expansion and Respiratory Effort, - - BS+ bilaterally with bibasilar crackles Cardiovascular: RRR - Normal S1 and S2 Extremities: - - Bilateral LE moderate to severe pitting edema, CDI to RLE Neurological: - - AAOx2 (self and place), CORCORAN Result Diagrams: 06/14/17 06:13 06/17/17 05:23 Assess/Plan/Problems-Billing Assessment: Mrs. Glez is an 86 yo f with h/o dementia, HOCM, Afib on anticoagulation, CKD stage 3, LLE thrombectomy, s/p pacer, who presented with R leg cellulitis and COMPA. - Patient Problems (1) Diastolic CHF, acute Comment: - Diastolic CHF exacerbation. - Now her renal function is improving, will try gentle diuresis. (2) Afib Comment: - Rate controlled with Atenolol. - Now on low dose Eliquis due to renal function. (3) Cellulitis, leg Comment: - CANELO shows significant disease on left, but not on R leg where the ulcer is. - Suspect the ulcer is due to venous insufficiency. - Continue clindamycin #6/. (4) COMPA (acute kidney injury) Comment: - CKD stage 3 with baseline creatinine around 1.3 - suspect worsening renal function due to a combination of Bactrim and Aldactone. - Creatinine trending down. (5) Hyperkalemia Comment: - Resolved. - Secondary to COMPA, Bactrim, and Aldactone. - Received Kayexalate x 2. (6) DVT prophylaxis Comment: - Eliquis. Status and Disposition: Inpatient. Will got to [facility] at discharge.
[2017-06-18] MEDS: Clindamycin CAP* 150 MG PO SCH ×3 (05:23→21:27)
[2017-06-18 05:46] LABS: EGFR Non-African American 29.2 (>60)
[2017-06-18] MEDS ORDERED: Furosemide IV* 10 MG/ML 2 ML VIAL (20 MG) IV SLOW PU ONE (08:36)
[2017-06-18] MEDS: Lactobacillus Acidophilus* 1 TAB PO SCH ×2 (08:45→21:26)
[2017-06-18] MEDS: Nystatin CREAM* 15 GM TUBE TOPICAL SCH ×3 (08:45→21:28)
[2017-06-18] MEDS: Cholecalciferol TAB* 1000 UNITS PO SCH (08:45)
[2017-06-18] MEDS: Apixaban* 2.5 MG TAB PO SCH ×2 (08:45→21:25)
[2017-06-18] MEDS: Docusate CAP* 100 MG PO SCH (08:45)
[2017-06-18] MEDS: Atenolol TAB* 50 MG PO SCH (08:45)
[2017-06-18] MEDS: Senna TAB PO SCH (08:45)
[2017-06-18] MEDS: Collagenase 250 MG/GM OINT* 30 GM TOPICAL SCH (08:46)
[2017-06-18] MEDS ORDERED: Acetaminophen TAB* 325 MG PO PRN (08:50)
--- NOTE | 2017-06-18 14:01 | PN ---
Subjective Date of Service: 06/18/17 Interval History: HOSPITALIST PROGRESS NOTE Patient seen and examined at bedside. Care reviewed and d/w Garcia Timmons RN. Pleasantly confused, offers no complaints. Family History: Unchanged from Admission Social History: Unchanged from Admission Past Medical History: Unchanged from Admission Objective Active Medications: Acetaminophen (Tylenol Tab*) 650 mg PO Q6H PRN PRN Reason: pain/fever Apixaban (Eliquis) 2.5 mg PO BID [facility] Last Admin: 06/18/17 08:45 Dose: 2.5 mg Atenolol (Tenormin Tab*) 50 mg PO DAILY [facility] Last Admin: 06/18/17 08:45 Dose: 50 mg Cholecalciferol (Vitamin D Tab*) 2,000 units PO DAILY [facility] Last Admin: 06/18/17 08:45 Dose: 2,000 units Clindamycin HCl (Cleocin Cap*) 150 mg PO Q8HR [facility] Last Admin: 06/18/17 05:23 Dose: 150 mg Collagenase (Santyl 250 Mg/Gm Oint*) 1 applic TOPICAL DAILY [facility] Last Admin: 06/18/17 08:46 Dose: 1 applic Docusate Sodium (Colace Cap*) 100 mg PO DAILY [facility] Last Admin: 06/18/17 08:45 Dose: 100 mg Lactobacillus Rhamnosus (Lactobacillus Acidophilus*) 1 tab PO BID [facility] Last Admin: 06/18/17 08:45 Dose: 1 tab Magnesium Hydroxide (Milk Of Magnesia Liq*) 30 ml PO DAILY PRN PRN Reason: CONSTIPATION Nitroglycerin (Nitroglycerin Tab 0.4 Mg*) 0.4 mg SL Q5M PRN PRN Reason: ANGINA Nystatin (Nystatin Cream*) 1 applic TOPICAL TID [facility] Last Admin: 06/18/17 08:45 Dose: 1 applic Senna (Senokot Tab*) 1 tab PO DAILY [facility] Last Admin: 06/18/17 08:45 Dose: 1 tab Vital Signs - 8 hr 06/18/17 06/18/17 06/18/17 07:37 08:00 11:49 Temperature 98.1 F 98.4 F Pulse Rate 81 67 Respiratory 16 16 20 Rate Blood Pressure 104/63 109/54 (mmHg) O2 Sat by Pulse 99 100 Oximetry Oxygen Devices in Use Now: None Appearance: Elderly lady sitting up in a chair in NAD. Eyes: No Scleral Icterus Ears/Nose/Mouth/Throat: Mucous Membranes Moist Neck: Trachea Midline Respiratory: Symmetrical Chest Expansion and Respiratory Effort, Clear to Auscultation Cardiovascular: RRR - Normal S1 and S2 Extremities: - - Bilateral LE moderate pitting edema. RLE wound is improved, with pink base, some serous drainage Neurological: - - AAOx2 (self and place) Result Diagrams: 06/14/17 06:13 06/18/17 05:12 Assess/Plan/Problems-Billing Assessment: Mrs. Glez is an 86 yo f with h/o dementia, HOCM, Afib on anticoagulation, CKD stage 3, LLE thrombectomy, s/p pacer, who presented with R leg cellulitis and COMPA. - Patient Problems (1) Diastolic CHF, acute Comment: - Diastolic CHF exacerbation. - Now her renal function is improving, responding to gentle diuresis. (2) Afib Comment: - Rate controlled with Atenolol. - Now on low dose Eliquis due to renal function. (3) Cellulitis, leg Comment: - CANELO shows significant disease on left, but not on R leg where the ulcer is. - Suspect the ulcer is due to venous insufficiency. - Continue clindamycin #7/. (4) COMPA (acute kidney injury) Comment: - CKD stage 3 with baseline creatinine around 1.3 - suspect worsening renal function due to secondary to ATN due to Bactrim and Aldactone use. - Creatinine stable, close to baseline. (5) Hyperkalemia Comment: - Resolved. - Secondary to COMPA, Bactrim, and Aldactone. - Received Kayexalate x 2. (6) DVT prophylaxis Comment: - Eliquis. Status and Disposition: Inpatient. Anticipate d/c to [facility] in AM. HCP Dr. Hudson called ([phone]) called and updated about plan.
[2017-06-19] MEDS: Clindamycin CAP* 150 MG PO SCH ×3 (05:51→21:47)
[2017-06-19] MEDS: Lactobacillus Acidophilus* 1 TAB PO SCH ×2 (09:47→21:47)
[2017-06-19] MEDS: Senna TAB PO SCH ×2 (09:47→09:53)
[2017-06-19] MEDS: Apixaban* 2.5 MG TAB PO SCH ×2 (09:47→21:48)
[2017-06-19] MEDS: Docusate CAP* 100 MG PO SCH ×2 (09:47→09:52)
[2017-06-19] MEDS: Atenolol TAB* 50 MG PO SCH (09:47)
[2017-06-19] MEDS: Cholecalciferol TAB* 1000 UNITS PO SCH (09:47)
[2017-06-19] MEDS: Nystatin CREAM* 15 GM TUBE TOPICAL SCH ×3 (10:51→21:48)
[2017-06-19] MEDS: Collagenase 250 MG/GM OINT* 30 GM TOPICAL SCH (10:52)
--- NOTE | 2017-06-19 13:21 | PN ---
Subjective Date of Service: 06/19/17 Interval History: HOSPITALIST PROGRESS NOTE Patient seen and examined at bedside. Pleasantly confused, offers no complaints. Family History: Unchanged from Admission Social History: Unchanged from Admission Past Medical History: Unchanged from Admission Objective Active Medications: Acetaminophen (Tylenol Tab*) 650 mg PO Q6H PRN PRN Reason: pain/fever Last Admin: 06/19/17 11:07 Dose: 650 mg Apixaban (Eliquis) 2.5 mg PO BID [facility] Last Admin: 06/19/17 09:47 Dose: 2.5 mg Atenolol (Tenormin Tab*) 50 mg PO DAILY [facility] Last Admin: 06/19/17 09:47 Dose: 50 mg Cholecalciferol (Vitamin D Tab*) 2,000 units PO DAILY [facility] Last Admin: 06/19/17 09:47 Dose: 2,000 units Clindamycin HCl (Cleocin Cap*) 150 mg PO Q8HR [facility] Last Admin: 06/19/17 05:51 Dose: 150 mg Collagenase (Santyl 250 Mg/Gm Oint*) 1 applic TOPICAL DAILY [facility] Last Admin: 06/19/17 10:52 Dose: 1 applic Docusate Sodium (Colace Cap*) 100 mg PO DAILY [facility] Last Admin: 06/19/17 09:52 Dose: Not Given Lactobacillus Rhamnosus (Lactobacillus Acidophilus*) 1 tab PO BID [facility] Last Admin: 06/19/17 09:47 Dose: 1 tab Magnesium Hydroxide (Milk Of Magnesia Liq*) 30 ml PO DAILY PRN PRN Reason: CONSTIPATION Nitroglycerin (Nitroglycerin Tab 0.4 Mg*) 0.4 mg SL Q5M PRN PRN Reason: ANGINA Nystatin (Nystatin Cream*) 1 applic TOPICAL TID [facility] Last Admin: 06/19/17 10:51 Dose: 1 applic Senna (Senokot Tab*) 1 tab PO DAILY [facility] Last Admin: 06/19/17 09:53 Dose: Not Given Vital Signs - 8 hr 06/19/17 06/19/17 07:35 08:00 Temperature 97.8 F Pulse Rate 74 Respiratory 18 16 Rate Blood Pressure 110/64 (mmHg) O2 Sat by Pulse 100 Oximetry Oxygen Devices in Use Now: None Appearance: Elderly lady sitting up in a chair in NAD. Eyes: No Scleral Icterus Ears/Nose/Mouth/Throat: Mucous Membranes Moist Neck: Trachea Midline Respiratory: Symmetrical Chest Expansion and Respiratory Effort, Clear to Auscultation - decreased in both bases Cardiovascular: RRR - Normal S1 and S2 Abdominal: NL Sounds; No Tenderness; No Distention Extremities: - - Mild to moderate LE edema, clean wound to RLE Neurological: NL Muscle Strength and Tone, - - AAOx2 (self and place) Result Diagrams: 06/14/17 06:13 06/18/17 05:12 Assess/Plan/Problems-Billing Assessment: Mrs. Glez is an 86 yo f with h/o dementia, HOCM, Afib on anticoagulation, CKD stage 3, LLE thrombectomy, s/p pacer, who presented with R leg cellulitis and COMPA. - Patient Problems (1) Diastolic CHF, acute Comment: - Diastolic CHF exacerbation. - Responding to gentle diuresis. - Weight down to 179lbs. (2) Afib Comment: - Rate controlled with Atenolol. - Now on low dose Eliquis due to renal function. (3) Cellulitis, leg Comment: - CANELO shows significant disease on left, but not on R leg where the ulcer is. - Suspect the ulcer is due to venous insufficiency. - Completed 7 days of clindamycin. (4) COMPA (acute kidney injury) Comment: - CKD stage 3 with baseline creatinine around 1.3 - suspect worsening renal function due to secondary to ATN due to Bactrim and Aldactone use. - Creatinine stable, close to baseline. (5) Hyperkalemia Comment: - Resolved. (6) DVT prophylaxis Comment: - Eliquis. Status and Disposition: Inpatient. Stable for discharge to [place].
[2017-06-20] MEDS: Clindamycin CAP* 150 MG PO SCH (05:54)
[2017-06-20] MEDS: Apixaban* 2.5 MG TAB PO SCH (08:38)
[2017-06-20] MEDS: Senna TAB PO SCH (08:38)
[2017-06-20] MEDS: Lactobacillus Acidophilus* 1 TAB PO SCH (08:39)
[2017-06-20] MEDS: Cholecalciferol TAB* 1000 UNITS PO SCH (08:39)
[2017-06-20] MEDS: Atenolol TAB* 50 MG PO SCH (08:39)
[2017-06-20] MEDS: Collagenase 250 MG/GM OINT* 30 GM TOPICAL SCH (08:39)
[2017-06-20] MEDS: Docusate CAP* 100 MG PO SCH (08:39)
[2017-06-20] MEDS: Nystatin CREAM* 15 GM TUBE TOPICAL SCH (08:39)
[2017-06-20] MEDS ORDERED: Furosemide TAB* 20 MG PO SCH (09:00)
--- NOTE | 2017-06-20 10:16 | PN ---
Subjective Date of Service: 06/20/17 Interval History: HOSPITALIST PROGRESS NOTE Patient seen and examined at bedside. She feels well today, offers no complaints. Friend (Puja) updated at bedside. Family History: Unchanged from Admission Social History: Unchanged from Admission Past Medical History: Unchanged from Admission Objective Active Medications: Acetaminophen (Tylenol Tab*) 650 mg PO Q6H PRN PRN Reason: pain/fever Last Admin: 06/19/17 11:07 Dose: 650 mg Apixaban (Eliquis) 2.5 mg PO BID [facility] Last Admin: 06/20/17 08:38 Dose: 2.5 mg Atenolol (Tenormin Tab*) 50 mg PO DAILY [facility] Last Admin: 06/20/17 08:39 Dose: 50 mg Cholecalciferol (Vitamin D Tab*) 2,000 units PO DAILY [facility] Last Admin: 06/20/17 08:39 Dose: 2,000 units Clindamycin HCl (Cleocin Cap*) 150 mg PO Q8HR [facility] Last Admin: 06/20/17 05:54 Dose: 150 mg Collagenase (Santyl 250 Mg/Gm Oint*) 1 applic TOPICAL DAILY [facility] Last Admin: 06/20/17 08:39 Dose: 1 applic Docusate Sodium (Colace Cap*) 100 mg PO DAILY [facility] Last Admin: 06/20/17 08:39 Dose: 100 mg Furosemide (Lasix Tab*) 20 mg PO DAILY [facility] Last Admin: 06/20/17 08:38 Dose: 20 mg Lactobacillus Rhamnosus (Lactobacillus Acidophilus*) 1 tab PO BID [facility] Last Admin: 06/20/17 08:39 Dose: 1 tab Magnesium Hydroxide (Milk Of Magnesia Liq*) 30 ml PO DAILY PRN PRN Reason: CONSTIPATION Nitroglycerin (Nitroglycerin Tab 0.4 Mg*) 0.4 mg SL Q5M PRN PRN Reason: ANGINA Nystatin (Nystatin Cream*) 1 applic TOPICAL TID [facility] Last Admin: 06/20/17 08:39 Dose: 1 applic Senna (Senokot Tab*) 1 tab PO DAILY [facility] Last Admin: 06/20/17 08:38 Dose: 1 tab Selected Entries 06/19/17 23:27 Temperature 97.8 F Pulse Rate 60 Respiratory 16 Rate Blood Pressure 99/28 (mmHg) O2 Sat by Pulse 99 Oximetry Oxygen Devices in Use Now: None Appearance: Pleasantly confused elderly lady sitting up in a chair eating breakfast in NAD. Eyes: No Scleral Icterus Ears/Nose/Mouth/Throat: Mucous Membranes Moist Neck: Trachea Midline Respiratory: Symmetrical Chest Expansion and Respiratory Effort, Clear to Auscultation Cardiovascular: RRR - Normal S1 and S2 Extremities: - - Mild LE edema, CDI to RLE Neurological: - - AAOx2 (self and place), CORCORAN Result Diagrams: 06/14/17 06:13 06/18/17 05:12 Assess/Plan/Problems-Billing Assessment: Mrs. Glez is an 86 yo f with h/o dementia, HOCM, Afib on anticoagulation, CKD stage 3, LLE thrombectomy, s/p pacer, who presented with R leg cellulitis and COMPA. - Patient Problems (1) Diastolic CHF, acute Comment: - Diastolic CHF exacerbation. - Responding to gentle diuresis. - Weight down to 172 lbs. (2) Afib Comment: - Rate controlled with Atenolol. - Now on low dose Eliquis due to renal function. (3) Cellulitis, leg Comment: - CANELO shows significant disease on left, but not on R leg where the ulcer is. - Suspect the ulcer is due to venous insufficiency. - Completed 7 days of clindamycin. (4) COMPA (acute kidney injury) Comment: - CKD stage 3 with baseline creatinine around 1.3 - suspect worsening renal function due to secondary to ATN due to Bactrim and Aldactone use. - Creatinine stable, close to baseline. (5) Hyperkalemia Comment: - Resolved. (6) DVT prophylaxis Comment: - Eliquis. Status and Disposition: Inpatient. Stable for discharge to [place].
[2017-06-20 11:28] VITALS: BP 95/47
--- NOTE | 2017-06-21 03:20 | DS ---
CC: Dr. Rhodes DISCHARGE SUMMARY: DATE OF ADMISSION: 06/12/17 DATE OF DISCHARGE: 06/20/17 PRIMARY CARE PROVIDER: Dr. Rhodes at [facility]. DISCHARGE DIAGNOSES: 1. Acute kidney injury, likely prerenal and with a component of acute tubular necrosis due to Bactrim and Aldactone use. 2. Hyperkalemia. 3. Right leg wound and cellulitis. 4. Acute diastolic congestive heart failure exacerbation. 5. Hypertrophic cardiomyopathy. 6. Dementia. 7. Hypertension. 8. Atrial fibrillation. 9. 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 11. Status post pacemaker. MEDICATIONS: At the time of transfer: 1. Acetaminophen 500 mg p.o. 4 times a day. 2. Atenolol 50 mg p.o. daily. 3. Cholecalciferol 2000 units p.o. daily. 4. Lactobacillus 1 tablet p.o. b.i.d. 5. Milk of magnesia 30 mL p.o. daily as needed for constipation. 6. Nitroglycerin 0.4 mg sublingual q.5 minutes p.r.n. chest pain. 7. Nystatin cream to affected areas t.i.d. 8. Senna/docusate 1 tablet p.o. daily. New medications: 1. Apixaban 2.5 mg p.o. b.i.d. 2. Daily dressing changes with Santyl. 3. Furosemide 20 mg p.o. daily. Xarelto was discontinued due to acute kidney injury. HOSPITAL COURSE: Ms. Glez is an 86-year-old lady with a past medical history as stated above who presented to the emergency room with complaints of dyspnea on exertion, lower extremity swelling and right lower extremity blister. As per HPI, the patient was feeling unwell over the last several days with progressive lower extremity edema and shortness of breath. There was concern for cellulitis and CHF, so in addition to her Lasix 40 mg a day, she was put on spironolactone 25 mg and also double strength Bactrim. Her symptoms worsened and she was sent to the emergency room for further evaluation. In the emergency room, she was found to have a creatinine of 2.74 that peaked at 2.94 and this was felt to be prerenal in the setting of diuretic use, but also a component of ATN with Aldactone and Bactrim use. The patient also had hyperkalemia and this was treated with Kayexalate. Initially, diuretics were held, but as her renal function improved, she was started on gentle diuresis with significant improvement of her breathing and lower extremity edema. She is now from 183 pounds on admission to 172 pounds on the day of discharge with significant improvement of lower extremity edema. Her right lower extremity showed superficial ulcer measuring 11.9 cm x 7 x 0.1 and the wound bed consist now of red granulation tissue. The recommendation was for daily dressing with Santyl, covered with Vaseline gauze, dry gauze and then rolled gauze. She will need to follow up at the wound clinic as an outpatient. She also had an CANELO performed and it showed no flow identified in the posterior tibial artery and the left dorsalis pedis is not compressible indicating advanced calcified atherosclerosis. Arterial waveforms are identified in the dorsalis pedis and a normal CANELO is recorded in the left digit. The recommendation was to pursue the arterial left lower extremity duplex sonography and/or catheter arteriography for further characterization. At this point, the patient's wound is on the right lower extremity, but she will need further workup of her left. Since her renal function is finally improving, I do not think arteriogram is indicated at this point, but can be pursued as an outpatient later on. The patient had a transthoracic echocardiogram that showed ejection fraction of 55% to 60% with [id number] concentric LVH. There is no significant change when compared to her echo from 2010. The patient is medically stable for discharge at this point, but she will need rehabilitation as of today, she requires two assist and is using a gait belt with a rolling walker, so she would benefit with further physical therapy treatment. She is being discharged on low dose furosemide and her renal function and electrolytes need to be monitored as outpatient. Also of note is that due to her renal function at this point, she was started on anticoagulation with low dose Eliquis, but if her GFR continues to improve, the dose will need to be increased or she can be changed back to Xarelto like she was prior to this admission. The patient is medically stable for discharge at this time. PHYSICAL EXAMINATION: Vital Signs: Temperature 97.8, heart rate is 60, respiratory rate is 16, oxygen saturation 99% on room air, blood pressure is 122 /68. General: The patient is a pleasantly confused elderly lady, sitting up in the chair, in no acute distress. CVS: Normal S1, S2. Regular rate and rhythm. Chest: Breath sounds present bilaterally with no added sounds. Extremities: Mild right lower extremity edema with a clean wound in the right lower extremity with granulation tissue and mild serosanguineous discharge. Neuro: She is alert and oriented to self and place, able to move all 4 extremities. DIET: Heart healthy diet. ACTIVITIES: As tolerated. DISPOSITION: To [facility]. STATUS WHILE IN THE HOSPITAL: Inpatient. Please also note that the patient will benefit of daily weight checks and if she gains more than 3 pounds, her diuretic dose should be adjusted and her renal function also needs to be monitored. Please keep in mind this is a summarized version of this patient's hospital stay. If you need more information, please feel free to call me at [phone] or please obtain the full medical records. TIME SPENT: Approximately 45 minutes were spent to complete this discharge. [id number]/CPS #: [id number] MTDD
== END 2017-06-20 11:40 | DRG 682 ==
LOC: ED 09:37 → MEDTELE 12:20 → OBSVTOIN 06-13 09:30 → SSU 06-16 19:21
PROVIDERS: ADMIT Internal Medicine; ATTEND Internal Medicine
DX: N17.0 Acute kidney failure with tubular necrosis (principal); I50.31 Acute diastolic (congestive) heart failure; L03.115 Cellulitis of right lower limb; J98.11 Atelectasis; I42.1 Obstructive hypertrophic cardiomyopathy; I13.0 Hypertensive heart and chronic kidney disease with heart failure and stage 1 through stage 4 chronic kidney disease, or unspecified chronic kidney disease; N18.3 Chronic kidney disease, stage 3 (moderate); E87.5 Hyperkalemia; B95.61 Methicillin susceptible Staphylococcus aureus infection as the cause of diseases classified elsewhere; G30.9 Alzheimer's disease, unspecified; F02.80 Dementia in other diseases classified elsewhere, unspecified severity, without behavioral disturbance, psychotic disturbance, mood disturbance, and anxiety; M19.90 Unspecified osteoarthritis, unspecified site; I48.2 Chronic atrial fibrillation; M48.02 Spinal stenosis, cervical region; E55.9 Vitamin D deficiency, unspecified; I45.10 Unspecified right bundle-branch block; Z95.0 Presence of cardiac pacemaker; Z79.01 Long term (current) use of anticoagulants; Z79.1 Long term (current) use of non-steroidal anti-inflammatories (NSAID); Z79.899 Other long term (current) drug therapy; Z88.0 Allergy status to penicillin; Z88.8 Allergy status to other drugs, medicaments and biological substances; Z80.1 Family history of malignant neoplasm of trachea, bronchus and lung; Z82.3 Family history of stroke
CPT/HCPCS: 36415; 71045; 80048; 80053; 82550; 82553; 83605; 83690; 83735; 83880; 84443; 84484; 85025; 85379; 85610; 85730; 86140; 87040; 87070; 87077; 87186; 87205; 87640; 87641; 93005; 93306; 93922; 99284; A9270-GY; G8978-GP-CK; G8979-GP-CI; G8987-GO-CL; G8988-GO-CJ; G8989-GO-CJ; J1644; J1940